=== PATIENT | male | born 1965 | race Two or more races ===

== ENCOUNTER 2018-02-28 17:13 | Emergency (ER) | payer OTHER ==
[~2018-02-28] VITALS: Ht 157.5 cm; Wt 61.2 kg
[~2018-02-28 17:13] MED LIST: ATOR10TA60 PO; BENZ-8 PO; BREO ELLIPTA 21 EACH INH; GABA-586 PO; INSU100I17 SQ; INSU100I27 SQ; LEVO500T59 PO; LISI10TA2 PO; METF10003 PO
[2018-02-28 17:45] LABS: BASO # 0.1 x10^3/uL (0.0-0.2); BASO % 1 % (0-3); EOS # 0.1 x10^3/uL (0.0-0.7); EOS % 1 % (0-3); HEMATOCRIT 44.6 % (39.0-53.0); HEMOGLOBIN 15.9 g/dL (13.0-17.5); LYMPH # 1.8 x10^3/uL (1.0-4.8); LYMPH % 18 % (24-48); MEAN CORPUSCULAR HEMOGLOBIN 32 pg (25-35); MEAN CORPUSCULAR HGB CONC 36 g/dL (31-37); MEAN CORPUSCULAR VOLUME 89 fL (79-100); MONO # 0.6 x10^3/uL (0.0-1.1); MONO % 6 % (0-9); NEUT # 7.2 x10^3uL (1.8-7.7); NEUT % 74 % (31-73); PLATELET COUNT 199 x10^3/uL (140-400); RED BLOOD COUNT 5.03 x10^6/uL (4.30-5.70); RED CELL DISTRIBUTION WIDTH 12.9 % (11.5-14.5); WHITE BLOOD COUNT 9.7 x10^3/uL (4.0-11.0)
[2018-02-28 17:52] LABS: BILIRUBIN,URINE NEGATIVE (NEG); CLARITY,URINE CLEAR; COLOR,URINE YELLOW; NITRITE,URINE NEGATIVE (NEG); PROTEIN,URINE NEGATIVE (NEG-TRACE); UROBILINOGEN,URINE 0.2 mg/dL (0.2 mg/dL)
[2018-02-28 17:58] LABS: BACTERIA,URINE 0 /HPF (0-FEW); RBC,URINE 0 /HPF (0-2); WBC,URINE 0 /HPF (0-4)
[2018-02-28 17:59] LABS: CALCIUM 9.3 mg/dL (8.5-10.1); CREATININE 1.2 mg/dL (0.7-1.3); GFR 63.1; POTASSIUM 3.9 mmol/L (3.5-5.1)
[2018-02-28 18:01] LABS: AMPHETAMINE/METHAMPHETAMINE NEG (NEG); BARBITURATES NEG (NEG); BENZODIAZEPINES NEG (NEG); CANNABINOIDS NEG (NEG); COCAINE NEG (NEG); METHADONE NEG (NEG); OPIATES NEG (NEG); PHENCYCLIDINE NEG (NEG)
[2018-02-28 18:05] LABS: ALBUMIN 3.9 g/dL (3.4-5.0); ALBUMIN/GLOBULIN RATIO 1.1 (1.0-1.7); TOTAL BILIRUBIN 0.6 mg/dL (0.2-1.0); TOTAL PROTEIN 7.5 g/dL (6.4-8.2)
--- NOTE | 2018-02-28 18:14 | EKG ---
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
[2018-02-28] MEDS ORDERED: IV NORMAL SALINE 1000ML BAG 1,000 ML IV ONE (18:45)
--- NOTE | 2018-02-28 18:53 | PHYS DOC ---
Past Medical History Past Medical History: Diabetes-Type II, Hypertension Past Surgical History: No Surgical History Alcohol Use: None Drug Use: None Adult General Chief Complaint Chief Complaint: DIZZY/LIGHT HEADED HPI HPI Patient is a 52 year old male who presents with falling after having dizziness. Patient states that he gets dizzy from time to time and this has been ongoing for months. Patient is neurologically intact. Patient denies numbness, tingling, chest pain, shortness of air, headaches, visual changes, any weaknesses. Patient states it is too painful to walk on his knee or bend it. No edema is seen. Patient denies any drug use or alcohol use. Patient states he is eating and drinking and has not been outside in the heat. Patient denies LOC. Review of Systems Review of Systems Constitutional: Denies fever or chills [] Eyes: Denies change in visual acuity, redness, or eye pain [] HENT: Denies nasal congestion or sore throat [] Respiratory: Denies cough or shortness of breath [] Cardiovascular: No additional information not addressed in HPI [] GI: Denies abdominal pain, nausea, vomiting, bloody stools or diarrhea [] : Denies dysuria or hematuria [] Musculoskeletal: Denies back pain or Inner Right knee pain [] Integument: Denies rash or skin lesions [] Neurologic: Denies headache, focal weakness or sensory changes. Dizziness [] All other systems were reviewed and found to be within normal limits, except as documented in this note. Current Medications Current Medications Current Medications Medications (Trade) Dose Ordered Sig/Alana Start Time Stop Time Status Last Admin Dose Admin Sodium Chloride 1,000 ml @ 1,000 mls/hr 1X ONCE 02/28/18 18:45 02/28/18 19:44 Allergies Allergies Allergies Coded Allergies Type Severity Reaction Last Updated Verified No Known Drug Allergies 09/26/15 No Physical Exam Physical Exam Constitutional: Well developed, well nourished, no acute distress, non-toxic appearance. [] HENT: Normocephalic, atraumatic, bilateral external ears normal, oropharynx moist, no oral exudates, nose normal. [] Eyes: PERRLA, EOMI, conjunctiva normal, no discharge. [] Neck: Normal range of motion, no tenderness, supple, no stridor. [] Cardiovascular:Heart rate regular rhythm, no murmur [] Lungs & Thorax: Bilateral breath sounds clear to auscultation [] Abdomen: Bowel sounds normal, soft, no tenderness, no masses, no pulsatile masses. [] Skin: Warm, dry, no erythema, no rash. [] Back: No tenderness, no CVA tenderness. [] Extremities: Right inner knee tenderness with limited ROM, no cyanosis, no clubbing, ROM intact, no edema. [] Neurologic: Alert and oriented X 3, normal motor function, normal sensory function, no focal deficits noted. [] Psychologic: Affect normal, judgement normal, mood normal. [] Current Patient Data Vital Signs Vital Signs Date Time Temp Pulse Resp B/P (MAP) Pulse Ox O2 Delivery O2 Flow Rate FiO2 02/28/18 17:41 97.6 80 16 159/104 (122) 96 Room Air 97.6 Lab Values Laboratory Tests Test 02/28/18 17:30 White Blood Count 9.7 x10^3/uL (4.0-11.0) Red Blood Count 5.03 x10^6/uL (4.30-5.70) Hemoglobin 15.9 g/dL (13.0-17.5) Hematocrit 44.6 % (39.0-53.0) Mean Corpuscular Volume 89 fL (79-100) Mean Corpuscular Hemoglobin 32 pg (25-35) Mean Corpuscular Hemoglobin Concent 36 g/dL (31-37) Red Cell Distribution Width 12.9 % (11.5-14.5) Platelet Count 199 x10^3/uL (140-400) Neutrophils (%) (Auto) 74 % (31-73) H Lymphocytes (%) (Auto) 18 % (24-48) L Monocytes (%) (Auto) 6 % (0-9) Eosinophils (%) (Auto) 1 % (0-3) Basophils (%) (Auto) 1 % (0-3) Neutrophils # (Auto) 7.2 x10^3uL (1.8-7.7) Lymphocytes # (Auto) 1.8 x10^3/uL (1.0-4.8) Monocytes # (Auto) 0.6 x10^3/uL (0.0-1.1) Eosinophils # (Auto) 0.1 x10^3/uL (0.0-0.7) Basophils # (Auto) 0.1 x10^3/uL (0.0-0.2) Urine Collection Type Unknown Urine Color Yellow Urine Clarity Clear Urine pH 6.0 Urine Specific [place] >=1.030 Urine Protein Negative mg/dL (NEG-TRACE) Urine Glucose (UA) >=1000 mg/dL (NEG) Urine Ketones (Stick) Negative mg/dL (NEG) Urine Blood Negative (NEG) Urine Nitrite Negative (NEG) Urine Bilirubin Negative (NEG) Urine Urobilinogen Dipstick 0.2 mg/dL (0.2 mg/dL) Urine Leukocyte Esterase Negative (NEG) Urine RBC 0 /HPF (0-2) Urine WBC 0 /HPF (0-4) Urine Squamous Epithelial Cells None /LPF Urine Bacteria 0 /HPF (0-FEW) Sodium Level 134 mmol/L (136-145) L Potassium Level 3.9 mmol/L (3.5-5.1) Chloride Level 98 mmol/L (98-107) Carbon Dioxide Level 28 mmol/L (21-32) Anion Gap 8 (6-14) Blood Urea Nitrogen 13 mg/dL (8-26) Creatinine 1.2 mg/dL (0.7-1.3) Estimated GFR (Cockcroft-Gault) 63.1 BUN/Creatinine Ratio 11 (6-20) Glucose Level 357 mg/dL (70-99) H Calcium Level 9.3 mg/dL (8.5-10.1) Total Bilirubin 0.6 mg/dL (0.2-1.0) Aspartate Amino Transferase (AST) 22 U/L (15-37) Alanine Aminotransferase (ALT) 51 U/L (16-63) Alkaline Phosphatase 119 U/L (46-116) H Troponin I Quantitative < 0.017 ng/mL (0.000-0.055) Total Protein 7.5 g/dL (6.4-8.2) Albumin 3.9 g/dL (3.4-5.0) Albumin/Globulin Ratio 1.1 (1.0-1.7) Urine Opiates Screen Neg (NEG) Urine Methadone Screen Neg (NEG) Urine Barbiturates Neg (NEG) Urine Phencyclidine Screen Neg (NEG) Urine Amphetamine/Methamphetamine Neg (NEG) Urine Benzodiazepines Screen Neg (NEG) Urine Cocaine Screen Neg (NEG) Urine Cannabinoids Screen Neg (NEG) Ethyl Alcohol Level < 10 mg/dL (0-10) Urine Ethyl Alcohol Neg (NEG) Laboratory Tests 02/28/18 17:30 Laboratory Tests 02/28/18 17:30 EKG EKG Sinus Rhythm[] Interpretation Time: [address] Odom Radiology/Procedures Radiology/Procedures Right knee, CT head[] Impressions: [facility] [address] [place] [address] IMAGING REPORT Signed PATIENT: JAUN ARAUJO ACCOUNT: [id number] : 1965 LOCATION: ER AGE: 52 SEX: M EXAM STATUS: REG ER ORD. PHYSICIAN: MONIKA ORTIZ APRN REASON: Dizziness PROCEDURE: CT HEAD WO CONTRAST PQRS Compliance statement: One or more of the following individualized dose reduction techniques were utilized for this examination: 1. Automated exposure control. 2. Adjustment of the mA and/or kV according to patient size. 3. Use of iterative reconstruction technique. Indication:dizzy, prior sent TECHNIQUE: CT head without IV contrast COMPARISON:CT from 05/05/2013 FINDINGS: No pathologic extra-axial or intra-axial fluid collection. The ventricles and basal cisterns are within normal limits. No acute intracranial bleed. Mild periventricular white matter changes noted. No focal loss of navarrete-white differentiation. Old lacunar infarct is seen in the left basal ganglia. Orbits are within normal limits. No suspicious bony lesion. Visualized paranasal sinuses and mastoid air cells are clear. IMPRESSION: 1. No acute intracranial process. If concern for acute ischemic stroke is high, please consider MRI brain. 2. Mild white matter changes likely secondary to chronic microvascular ischemic disease. Electronically signed by: Chris Case DO (02/28/2018 7:03 PM) [facility] DICTATED and SIGNED BY: CHRIS CASE DO DATE: 02/28/18 1900 No acute findings per Dr Galeana Course & Med Decision Making Course & Med Decision Making Upon examination patient is neurologically intact. Patients right inner knee is tender and painful to stand on. Patients states he can not bend knee and I meet resistance from the patient when trying to bend the knee. No edema present. Patient denies loc during fall, chest pain. soa, numbness or tingling. Patient states that his dizziness comes and goes. Patient denies headache, drug use, fever, etoh use or visual changes. Patient is not a good historian of when the dizziness began. Patients labs show no drug use or Etoh or abnormal findings. Patient's CT of the head shows no acute findings and patient's right knee x-ray shows no acute findings per Dr. Galeana. Patient to follow-up with his primary care provider or orthopedics. Patient to get a Fadi bandage for his knee and crutches. Patient to be [id number] and to follow-up with his primary care orthopedics as soon as possible. Patient can take ibuprofen or Tylenol for pain. [] Dragon Disclaimer Dragon Disclaimer This electronic medical record was generated, in whole or in part, using a voice recognition dictation system. Departure Departure Impression: Primary Impression: Right knee pain Additional Impressions: Right knee injury Dizziness Disposition: 01 HOME, SELF-CARE Condition: STABLE Referrals: KING STRINGER MD (PCP) AIME ARAUJO II, MD Patient Instructions: Dizziness, Knee Pain Additional Instructions: Follow up with your primary care or Dr Araujo Problem Qualifiers Primary Impression: Right knee pain Chronicity: acute Qualified Codes: M25.561 - Pain in right knee Additional Impressions: Right knee injury Encounter type: initial encounter Qualified Codes: S89.91XA - Unspecified injury of right lower leg, initial encounter MONIKA ORTIZ RIG HAND Feb 28, 2018 18:53
--- NOTE | 2018-02-28 19:07 | RAD ---
PQRS Compliance statement: One or more of the following individualized dose reduction techniques were utilized for this examination: 1. Automated exposure control. 2. Adjustment of the mA and/or kV according to patient size. 3. Use of iterative reconstruction technique. Indication:dizzy, prior sent TECHNIQUE: CT head without IV contrast COMPARISON:CT from 05/05/2013 FINDINGS: No pathologic extra-axial or intra-axial fluid collection. The ventricles and basal cisterns are within normal limits. No acute intracranial bleed. Mild periventricular white matter changes noted. No focal loss of navarrete-white differentiation. Old lacunar infarct is seen in the left basal ganglia. Orbits are within normal limits. No suspicious bony lesion. Visualized paranasal sinuses and mastoid air cells are clear. IMPRESSION: 1. No acute intracranial process. If concern for acute ischemic stroke is high, please consider MRI brain. 2. Mild white matter changes likely secondary to chronic microvascular ischemic disease. Electronically signed by: Chris Case DO (02/28/2018 7:03 PM) [facility]
[2018-02-28 20:00] VITALS: BP 160/110
--- NOTE | 2018-03-01 09:01 | RAD ---
EXAM: AP, oblique and lateral views of the right knee DATE: 02/28/2018 7:03 PM INDICATION: FALL COMPARISON: No Prior FINDINGS/ IMPRESSION: No evidence of acute fracture or dislocation. Joint spaces are preserved without significant degenerative/proliferative change. No joint effusion. Varicose veins are seen in the subcutaneous soft tissues. Electronically signed by: Vasyl Hsu MD (03/01/2018 8:56 AM) [facility]
== END 2018-02-28 20:09 | disposition home or self-care (01) ==
LOC: ER 17:13
DX: S89.91XA Unspecified injury of right lower leg, initial encounter (principal); R42 Dizziness and giddiness; I10 Essential (primary) hypertension; E11.9 Type 2 diabetes mellitus without complications; W18.39XA Other fall on same level, initial encounter; Y93.89 Activity, other specified; Y92.89 Other specified places as the place of occurrence of the external cause; Y99.8 Other external cause status
CPT/HCPCS: 36415; 70450; 73562; 80053; 80307; 81001; 84484; 85025; 93005; 99285; G0480; G0479

== ENCOUNTER 2020-10-18 18:38 | Emergency (ER) | payer OTHER ==
[~2020-10-18] VITALS: Ht 121.9 cm; Wt 50.0 kg
[~2020-10-18 18:38] MED LIST changes: -GABA-586 PO; +GABA300C18 PO; +LISI10TA16 PO; -LISI10TA2 PO; -METF10003 PO; +METF10007 PO
[2020-10-18] MEDS ORDERED: IV NORMAL SALINE 1000ML BAG 1,000 ML IV SCH (19:45)
[2020-10-18] MEDS ORDERED: VANCOMYCIN PER PHARMACY MC ONE (19:45)
[2020-10-18] MEDS ORDERED: PIPERACILLIN/TAZOBACTAM 4.5 GM in IV NORMAL SALINE 100ML 100 ML IV ONE (19:45)
[2020-10-18] MEDS ORDERED: VANCOMYCIN 1.25 GM in IV NORMAL SALINE 250ML 250 ML IV ONE (20:00)
[2020-10-18 20:24] LABS: BASO % 0 % (0-3); EOS # 0.2 x10^3/uL (0.0-0.7); EOS % 2 % (0-3); HEMATOCRIT 48.1 % (39.0-53.0); HEMOGLOBIN 16.1 g/dL (13.0-17.5); LYMPH % 8 % (24-48); MEAN CORPUSCULAR HEMOGLOBIN 31 pg (25-35); MEAN CORPUSCULAR HGB CONC 34 g/dL (31-37); MEAN CORPUSCULAR VOLUME 91 fL (79-100); MONO # 0.6 x10^3/uL (0.0-1.1); MONO % 5 % (0-9); NEUT # 10.5 x10^3/uL (1.8-7.7); NEUT % 86 % (31-73); PLATELET COUNT 285 x10^3/uL (140-400); RED BLOOD COUNT 5.28 x10^6/uL (4.30-5.70); RED CELL DISTRIBUTION WIDTH 13.1 % (11.5-14.5); WHITE BLOOD COUNT 12.2 x10^3/uL (4.0-11.0)
[2020-10-18] MEDS: MORPHINE SULFATE 4 MG/ML VIAL. IV/SQ PRN ×2 (20:29→22:31)
[2020-10-18 20:39] LABS: POTASSIUM 4.1 mmol/L (3.5-5.1)
--- NOTE | 2020-10-18 20:39 | RAD ---
Exam: Right foot 3 views INDICATION: Right foot redness, pain stepped on nail TECHNIQUE: Frontal, lateral and oblique views of the right foot Comparisons: None FINDINGS: Soft tissue swelling overlying the dorsal aspect of the foot. Bone mineralization is normal. No acute or healed fractures. Joint spaces are well-maintained. IMPRESSION: Soft tissue swelling at the forefoot without underlying osseous abnormality. Electronically signed by: Mat Woods MD (10/18/2020 8:37 PM) [facility]
[2020-10-18 20:46] LABS: ALBUMIN 4.1 g/dL (3.4-5.0); C-REACTIVE PROTEIN 1.4 mg/L (0-3.3); TOTAL BILIRUBIN 0.7 mg/dL (0.2-1.0); TOTAL PROTEIN 8.3 g/dL (6.4-8.2)
[2020-10-18] MEDS ORDERED: ACETAMINOPHEN 500 MG TABLET PO ONE (21:00)
[2020-10-18 21:32] VITALS: BP 136/89
--- NOTE | 2020-10-18 21:56 | PHYS DOC ---
Past Medical History Past Medical History: Diabetes-Type II, Hypertension Past Surgical History: No Surgical History Smoking Status: Never Smoker Alcohol Use: None Drug Use: None General Adult EDM: Chief Complaint: FOOT INJURY PAIN HPI: HPI: Patient is a 55 year old male with history of diabetes type 2, hypertension, who presents today complaining of moderate pain and swelling to the right foot that began today after stepping on a nail with shoes on. Patient states he does not know if he has a fever. Denies any nausea, vomiting. Gauge Controller line was used for Sami on arrival to the ED Review of Systems: Review of Systems: Constitutional: Denies fever or chills. [] Eyes: Denies change in visual acuity. [] HENT: Denies nasal congestion or sore throat. [] Respiratory: Denies cough or shortness of breath. [] Cardiovascular: Denies chest pain or edema. [] GI: Denies abdominal pain, nausea, vomiting, bloody stools or diarrhea. [] : Denies dysuria. [] Musculoskeletal: Denies back pain or joint pain. [] Integument: Reports right foot pain and swelling Neurologic: Denies headache, focal weakness or sensory changes. [] Psychiatric: Denies depression or anxiety. [] Heart Score: C/O Chest Pain: N/A Risk Factors: Risk Factors: DM, Current or recent (<one month) smoker, HTN, HLP, family history of CAD, obesity. Risk Scores: Score 0 - 3: 2.5% MACE over next 6 weeks - Discharge Home Score 4 - 6: 20.3% MACE over next 6 weeks - Admit for Clinical Observation Score 7 - 10: 72.7% MACE over next 6 weeks - Early Invasive Strategies Current Medications: Current Medications Medications (Trade) Dose Ordered Sig/[facility] Start Time Stop Time Status Last Admin Dose Admin Acetaminophen (Tylenol) 1,000 mg 1X ONCE 10/18/20 21:00 10/18/20 21:01 DC 10/18/20 21:05 1,000 MG Morphine Sulfate (Morphine Sulfate) 4 mg PRN Q15MIN PRN 10/18/20 19:45 10/19/20 19:44 10/18/20 20:29 4 MG Piperacillin Sod/ Tazobactam Sod 4.5 gm/Sodium Chloride 100 ml @ 200 mls/hr 1X ONCE 10/18/20 19:45 10/18/20 20:14 DC 10/18/20 20:19 200 MLS/HR Sodium Chloride 1,000 ml @ 1,500 mls/hr Q40M 10/18/20 19:45 10/18/20 20:44 DC 10/18/20 20:19 1,500 MLS/HR Vancomycin HCl (Vanco Per Pharmacy) 1 each 1X ONCE 10/18/20 19:45 10/18/20 19:49 DC Vancomycin HCl 1.25 gm/Sodium Chloride 250 ml @ 166.667 mls/hr 1X ONCE 10/18/20 20:00 10/18/20 21:29 DC 10/18/20 20:58 166.667 MLS/HR Allergies: Allergies: Allergies Coded Allergies Type Severity Reaction Last Updated Verified No Known Drug Allergies 09/26/15 No Physical Exam: PE: Constitutional: Well developed, well nourished, no acute distress, non-toxic appearance. [] HENT: Normocephalic, atraumatic, bilateral external ears normal, oropharynx moist, no oral exudates, nose normal. [] Eyes: PERRLA, EOMI, conjunctiva normal, no discharge. [] Neck: Normal range of motion, no tenderness, supple, no stridor. [] Cardiovascular:Heart rate regular rhythm, no murmur [] Lungs & Thorax: Bilateral breath sounds clear to auscultation [] Abdomen: Bowel sounds normal, soft, no tenderness, no masses, no pulsatile masses. [] Skin: Mild swelling noted on top of the right foot. Right dorsal foot noted for mild cellulitis especially over the third fourth and fifth metatarsals. Right distal fourth metatarsal with a puncture wound with no drainage. +2 right pedal pulse. Full range of motion to the right foot and toes. Cap refill less than 2 seconds to right toes Back: No tenderness, no CVA tenderness. [] Extremities: No tenderness, no cyanosis, no clubbing, ROM intact, no edema. [] Neurologic: Alert and oriented X 3, normal motor function, normal sensory function, no focal deficits noted. [] Psychologic: Affect normal, judgement normal, mood normal. [] Current Patient Data: Labs: Laboratory Tests Test 10/18/20 20:10 White Blood Count 12.2 x10^3/uL (4.0-11.0) H Red Blood Count 5.28 x10^6/uL (4.30-5.70) Hemoglobin 16.1 g/dL (13.0-17.5) Hematocrit 48.1 % (39.0-53.0) Mean Corpuscular Volume 91 fL (79-100) Mean Corpuscular Hemoglobin 31 pg (25-35) Mean Corpuscular Hemoglobin Concent 34 g/dL (31-37) Red Cell Distribution Width 13.1 % (11.5-14.5) Platelet Count 285 x10^3/uL (140-400) Neutrophils (%) (Auto) 86 % (31-73) H Lymphocytes (%) (Auto) 8 % (24-48) L Monocytes (%) (Auto) 5 % (0-9) Eosinophils (%) (Auto) 2 % (0-3) Basophils (%) (Auto) 0 % (0-3) Neutrophils # (Auto) 10.5 x10^3/uL (1.8-7.7) H Lymphocytes # (Auto) 1.0 x10^3/uL (1.0-4.8) Monocytes # (Auto) 0.6 x10^3/uL (0.0-1.1) Eosinophils # (Auto) 0.2 x10^3/uL (0.0-0.7) Basophils # (Auto) 0.0 x10^3/uL (0.0-0.2) Platelet Estimate Pending Sodium Level 139 mmol/L (136-145) Potassium Level 4.1 mmol/L (3.5-5.1) Chloride Level 100 mmol/L (98-107) Carbon Dioxide Level 29 mmol/L (21-32) Anion Gap 10 (6-14) Blood Urea Nitrogen 10 mg/dL (8-26) Creatinine 1.0 mg/dL (0.7-1.3) Estimated GFR (Cockcroft-Gault) 77.0 BUN/Creatinine Ratio 10 (6-20) Glucose Level 146 mg/dL (70-99) H Lactic Acid Level 1.9 mmol/L (0.4-2.0) Calcium Level 9.0 mg/dL (8.5-10.1) Total Bilirubin 0.7 mg/dL (0.2-1.0) Aspartate Amino Transferase (AST) 27 U/L (15-37) Alanine Aminotransferase (ALT) 49 U/L (16-63) Alkaline Phosphatase 110 U/L (46-116) C-Reactive Protein, Quantitative 1.4 mg/L (0-3.3) Total Protein 8.3 g/dL (6.4-8.2) H Albumin 4.1 g/dL (3.4-5.0) Albumin/Globulin Ratio 1.0 (1.0-1.7) Laboratory Tests 10/18/20 20:10 Laboratory Tests 10/18/20 20:10 Vital Signs: Vital Signs Date Time Temp Pulse Resp B/P (MAP) Pulse Ox O2 Delivery O2 Flow Rate FiO2 10/18/20 21:44 99.9 99.9 10/18/20 21:32 102 20 136/89 (105) 93 Room Air EKG: EKG: [] Radiology/Procedures: Radiology/Procedures: []PROCEDURE: FOOT RIGHT 3V Exam: Right foot 3 views INDICATION: Right foot redness, pain stepped on nail TECHNIQUE: Frontal, lateral and oblique views of the right foot Comparisons: None FINDINGS: Soft tissue swelling overlying the dorsal aspect of the foot. Bone mineralization is normal. No acute or healed fractures. Joint spaces are well- maintained. IMPRESSION: Soft tissue swelling at the forefoot without underlying osseous abnormality. Electronically signed by: Mat Dixon MD (10/18/2020 8:37 PM) [facility] DICTATED and SIGNED BY: MAT DIXON MD DATE: 10/18/203816NRH6 0 Course & Med Decision Making: Course & Med Decision Making Pertinent Labs and Imaging studies reviewed. (See chart for details) This is a 55-year-old male patient presenting to the ED today with puncture wound to the right foot after stepping on a nail today. Patient has cellulitis on top of the right foot. Patient arrives in the ED temperature 100.5, heart rate 103, respiration 20, blood pressure 169/100, O2 sats 94% on room air. Patient was started on the sepsis protocol including IV fluids and vancomycin and Zosyn. CBC with a WBC of 12.2, CMP with glucose of 146, anion gap is normal. CRP is normal. Lactic is normal Patient was offered admission to the hospital, he is Sami speaking. He expressed concern through the son who is interpreting at this point of being admitted to the hospital with no Algerian knowledge, he preferred to go home. We reassured him we can use an packing and final assembly supervisor line in case the kids are not availabl e, he refused He was discharged on clindamycin. Ashuon Disclaimer: Dragon Disclaimer: This electronic medical record was generated, in whole or in part, using a voice recognition dictation system. Departure Departure Impression: Primary Impression: Fever Qualified Codes: R50.9 - Fever, unspecified Additional Impressions: Cellulitis of right foot Puncture wound of foot Qualified Codes: S91.331A - Puncture wound without foreign body, right foot, initial encounter Disposition: DC HOME SELF CARE/HOMELESS Condition: STABLE Referrals: KING STRINGER MD (PCP) Follow-up in 2 to 3 days Patient Instructions: Cellulitis, [id number], Fever, Adult, [id number], Puncture Wound Additional Instructions: You were evaluated in the emergency room for cellulitis on the right foot after stepping on a nail. Please take the prescribed antibiotics until completed. Take the pain medicine as needed for pain. Follow-up with your primary care doctor in the next 2 days. Come back to the ED at any point symptoms worsen Scripts Hydrocodone Bit/Acetaminophen (HYDROCODONE-APAP 5-325 ) 1 Tab Tablet 1 TAB PO PRN Q6HRS PRN for PAIN, #14 TAB 0 Refills Prov: DUNIA GONSALES APRN 10/18/20 Clindamycin Hcl (CLINDAMYCIN HCL) 150 Mg Capsule 3 CAP PO TID, #90 CAP Prov: DUNIA GONSALES APRN 10/18/20 DUNIA GONSALES APRN Oct 18, 2020 21:56
[2020-10-18] MEDS ORDERED: HYDR-2761 PO (22:02)
[2020-10-18] MEDS ORDERED: CLIN150C15 PO (22:02)
[2020-10-18 22:13] LABS: % BANDS 5 % (0-9); % LYMPHS 11 % (24-48); % MONOS 3 % (0-10); % SEGS 81 % (35-66); PLT ESTIMATE ADEQUATE (ADEQUATE)
[2020-10-18 22:14] LABS: TOXIC GRANULATION MOD
== END 2020-10-18 22:38 | disposition home or self-care (01) ==
LOC: ER 18:38
DX: S91.331A Puncture wound without foreign body, right foot, initial encounter (principal); L03.115 Cellulitis of right lower limb; R50.9 Fever, unspecified; E11.9 Type 2 diabetes mellitus without complications; I10 Essential (primary) hypertension; W22.8XXA Striking against or struck by other objects, initial encounter; Y93.89 Activity, other specified; Y92.89 Other specified places as the place of occurrence of the external cause; Y99.8 Other external cause status
CPT/HCPCS: 36415; 73630; 80053; 83605; 84145; 85007; 85025; 86140; 87040; 96365; 96366; 96368; 96375; 96376; 99285; J2270; J2543; J3370; J7030; J7050

== ENCOUNTER 2020-11-07 19:45 | Emergency (ER) | payer OTHER ==
[~2020-11-07] VITALS: Ht 162.6 cm; Wt 61.3 kg
[~2020-11-07 19:45] MED LIST changes: +CLIN150C15 PO; +HYDR-2761 PO
[2020-11-07 20:12] LABS: BASO # 0.1 x10^3/uL (0.0-0.2); BASO % 1 % (0-3); EOS # 0.3 x10^3/uL (0.0-0.7); EOS % 3 % (0-3); HEMATOCRIT 44.6 % (39.0-53.0); HEMOGLOBIN 14.9 g/dL (13.0-17.5); LYMPH # 1.8 x10^3/uL (1.0-4.8); LYMPH % 19 % (24-48); MEAN CORPUSCULAR HEMOGLOBIN 30 pg (25-35); MEAN CORPUSCULAR HGB CONC 34 g/dL (31-37); MEAN CORPUSCULAR VOLUME 90 fL (79-100); MONO # 0.5 x10^3/uL (0.0-1.1); MONO % 5 % (0-9); NEUT # 6.8 x10^3/uL (1.8-7.7); NEUT % 73 % (31-73); PLATELET COUNT 553 x10^3/uL (140-400); RED BLOOD COUNT 4.96 x10^6/uL (4.30-5.70); RED CELL DISTRIBUTION WIDTH 13.1 % (11.5-14.5); WHITE BLOOD COUNT 9.4 x10^3/uL (4.0-11.0)
[2020-11-07] MEDS ORDERED: IV NORMAL SALINE 1000ML BAG 1,000 ML IV ONE (20:15)
[2020-11-07] MEDS ORDERED: METOCLOPRAMIDE HCL 10 MG/2 ML VIAL. IVP ONE (20:15)
[2020-11-07 20:49] LABS: CALCIUM 9.3 mg/dL (8.5-10.1); CREATININE 1.2 mg/dL (0.7-1.3); GFR 62.4; POTASSIUM 3.8 mmol/L (3.5-5.1)
[2020-11-07 20:57] LABS: ALBUMIN 3.7 g/dL (3.4-5.0); ALBUMIN/GLOBULIN RATIO 0.9 (1.0-1.7); MAGNESIUM 2.2 mg/dL (1.8-2.4); TOTAL BILIRUBIN 0.5 mg/dL (0.2-1.0); TOTAL PROTEIN 7.9 g/dL (6.4-8.2)
--- NOTE | 2020-11-07 20:58 | PHYS DOC ---
Past Medical History Past Medical History: Diabetes-Type II, Hypertension Past Surgical History: No Surgical History Smoking Status: Never Smoker Alcohol Use: None Drug Use: None General Adult EDM: Chief Complaint: NAUSEA/VOMITING/DIARRHEA HPI: HPI: Patient is a 55 year old male who presented to ER due to nausea and vomiting for 3 days. Patient denies any abdominal pain, no chest pain. Patient said whenever he ate he feels nauseous and went to throw up. Patient denies any cough or fever, no trouble breathing, no headache, no flulike symptoms. Patient denies any diarrhea. Review of Systems: Review of Systems: Constitutional: Denies fever or chills. [] Eyes: Denies change in visual acuity. [] HENT: Denies nasal congestion or sore throat. [] Respiratory: Denies cough or shortness of breath. [] Cardiovascular: Denies chest pain or edema. [] GI: Denies abdominal pain no diarrhea, positive for nausea and vomiting. : Denies dysuria. [] Musculoskeletal: Denies back pain or joint pain. [] Integument: Denies rash. [] Neurologic: Denies headache, focal weakness or sensory changes. [] Endocrine: Denies polyuria or polydipsia. [] Lymphatic: Denies swollen glands. [] Psychiatric: Denies depression or anxiety. [] Heart Score: C/O Chest Pain: N/A Risk Factors: Risk Factors: DM, Current or recent (<one month) smoker, HTN, HLP, family history of CAD, obesity. Risk Scores: Score 0 - 3: 2.5% MACE over next 6 weeks - Discharge Home Score 4 - 6: 20.3% MACE over next 6 weeks - Admit for Clinical Observation Score 7 - 10: 72.7% MACE over next 6 weeks - Early Invasive Strategies Current Medications: Current Medications Medications (Trade) Dose Ordered Sig/Alana Start Time Stop Time Status Last Admin Dose Admin Metoclopramide HCl (Reglan Vial) 10 mg 1X ONCE 11/07/20 20:15 11/07/20 20:16 DC 11/07/20 20:11 10 MG Sodium Chloride 1,000 ml @ 1,000 mls/hr 1X ONCE 11/07/20 20:15 11/07/20 21:14 11/07/20 20:10 1,000 MLS/HR Allergies: Allergies: Allergies Coded Allergies Type Severity Reaction Last Updated Verified No Known Drug Allergies 09/26/15 No Physical Exam: PE: Constitutional: Well developed, well nourished, no acute distress, non-toxic appearance. [] HENT: Normocephalic, atraumatic, bilateral external ears normal, oropharynx moist, no oral exudates, nose normal. [] Eyes: PERRLA, EOMI, conjunctiva normal, no discharge. [] Neck: Normal range of motion, no tenderness, supple, no stridor. [] Cardiovascular:Heart rate regular rhythm, no murmur [] Lungs & Thorax: Bilateral breath sounds clear to auscultation [] Abdomen: Bowel sounds normal, soft, no tenderness, no masses, no pulsatile masses. [] Skin: Warm, dry, no erythema, no rash. [] Back: No tenderness, no CVA tenderness. [] Extremities: No tenderness, no cyanosis, no clubbing, ROM intact, no edema. [] Neurologic: Alert and oriented X 3, normal motor function, normal sensory function, no focal deficits noted. [] Psychologic: Affect normal, judgement normal, mood normal. [] Current Patient Data: Labs: Laboratory Tests Test 11/07/20 20:05 White Blood Count 9.4 x10^3/uL (4.0-11.0) Red Blood Count 4.96 x10^6/uL (4.30-5.70) Hemoglobin 14.9 g/dL (13.0-17.5) Hematocrit 44.6 % (39.0-53.0) Mean Corpuscular Volume 90 fL (79-100) Mean Corpuscular Hemoglobin 30 pg (25-35) Mean Corpuscular Hemoglobin Concent 34 g/dL (31-37) Red Cell Distribution Width 13.1 % (11.5-14.5) Platelet Count 553 x10^3/uL (140-400) H Neutrophils (%) (Auto) 73 % (31-73) Lymphocytes (%) (Auto) 19 % (24-48) L Monocytes (%) (Auto) 5 % (0-9) Eosinophils (%) (Auto) 3 % (0-3) Basophils (%) (Auto) 1 % (0-3) Neutrophils # (Auto) 6.8 x10^3/uL (1.8-7.7) Lymphocytes # (Auto) 1.8 x10^3/uL (1.0-4.8) Monocytes # (Auto) 0.5 x10^3/uL (0.0-1.1) Eosinophils # (Auto) 0.3 x10^3/uL (0.0-0.7) Basophils # (Auto) 0.1 x10^3/uL (0.0-0.2) Laboratory Tests 11/07/20 20:05 Vital Signs: Vital Signs Date Time Temp Pulse Resp B/P (MAP) Pulse Ox O2 Delivery O2 Flow Rate FiO2 11/07/20 19:50 98.2 82 18 119/82 (94 96 Room Air 98.2 EKG: EKG: [] Radiology/Procedures: Radiology/Procedures: [][facility] [address] [place] [address] IMAGING REPORT Signed PATIENT: JAUN ARAUJO ACCOUNT: [id number] : 1965 LOCATION: ER AGE: 55 SEX: M EXAM STATUS: REG ER ORD. PHYSICIAN: JOSE MINOR DO REASON: NAUSEA, VOMITING, ABDOMINAL PAIN PROCEDURE: ACUTE ABDOMEN SERIES EXAM: 2 VIEW ABDOMEN WITH ONE VIEW CHEST. HISTORY: Nausea, vomiting, abdominal pain. COMPARISON: None. FINDINGS: A frontal view of the chest and supine/upright views of the abdomen are obtained. A triangular opacity in the right cardiophrenic angle most likely reflects a and epicardial fat pad. There is mild atelectasis in both bases. There is no pneumothorax or pleural effusion. The heart is not enlarged. There is no pneumoperitoneum. There are no distended small bowel loops or significant air-fluid levels. There is gas distally. The gallbladder is surgically absent. IMPRESSION: 1. No confluent infiltrates. Mild basilar atelectasis. 2. No evidence of obstruction. Findings consistent with constipation. Electronically signed by: Fernando Domínguez MD (11/07/2020 10:44 PM) [facility] DICTATED and SIGNED BY: CATHI DOMÍNGUEZ MD DATE: 11/07/20 [id number] 0 Course & Med Decision Making: Course & Med Decision Making Pertinent Labs and Imaging studies reviewed. (See chart for details) Patient had no nausea or vomiting at time of discharge Dragon Disclaimer: Rhiannon Disclaimer: This electronic medical record was generated, in whole or in part, using a voice recognition dictation system. Departure Departure Impression: Primary Impression: Nausea & vomiting Additional Impression: Constipation Disposition: HOME / SELF CARE / HOMELESS Condition: STABLE Referrals: KING STRINGER MD (PCP) FOLLOW UP WITH YOUR DOCTOR THIS WEEK Patient Instructions: Constipation, Adult, Nausea and Vomiting Additional Instructions: Thank you for visiting our Emergency Department. We appreciate you trusting us with your care. If any additional problems come up don't hesitate to return to visit us. Please follow up with your primary care provider so they can plan additional care if needed and know about the problem that you had. If symptoms worsen come back to the Emergency Department. Any concerning symptoms that start such as chest pain, shortness of air, weakness or numbness on one side of the body, running high fevers or any other concerning symptoms return to the ER. Scripts Ondansetron Hcl (ZOFRAN) 4 Mg Tablet 1 TAB PO Q6HRS PRN for NAUSEA, #20 TAB Prov: JOSE MINOR DO 11/07/20 JOSE MINOR DO Nov 07, 2020 20:58
[2020-11-07 22:00] VITALS: BP 140/70
[2020-11-07] MEDS ORDERED: MAGNESIUM CITRATE 296 ML SOLUTION. PO ONE (22:00)
[2020-11-07] MEDS ORDERED: ONDA4TAB7 PO (22:46)
--- NOTE | 2020-11-07 22:46 | RAD ---
EXAM: 2 VIEW ABDOMEN WITH ONE VIEW CHEST. HISTORY: Nausea, vomiting, abdominal pain. COMPARISON: None. FINDINGS: A frontal view of the chest and supine/upright views of the abdomen are obtained. A triangular opacity in the right cardiophrenic angle most likely reflects a and epicardial fat pad. There is mild atelectasis in both bases. There is no pneumothorax or pleural effusion. The heart is n ot enlarged. There is no pneumoperitoneum. There are no distended small bowel loops or significant air-fluid level s. There is gas distally. The gallbladder is surgically absent. IMPRESSION: 1. No confluent infiltrates. Mild basilar atelectasis. 2. No evidence of obstruction. Findings consistent with constipation. Electronically signed by: Fernando Domínguez MD (11/07/2020 10:44 PM) [facility]
== END 2020-11-07 23:04 | disposition home or self-care (01) ==
LOC: ER 19:45
DX: K59.00 Constipation, unspecified (principal); R11.2 Nausea with vomiting, unspecified; E11.9 Type 2 diabetes mellitus without complications; I10 Essential (primary) hypertension
CPT/HCPCS: 36415; 74022; 80053; 83690; 83735; 85025; 96361; 96374; 99284; J2765; J7030